=== PATIENT | male | born 1965 | race Caucasian/White ===

== ENCOUNTER → 2017-04-22 | Outpatient (CLI) | payer MEDICAID ==
[~2017-04-22] MED LIST: ACYCLOVIR800 MG PO; BACTRIM DS 8001 TA1 PO; CARVEDILOL6.25 MG PO; CELEXA40 MG PO; DIGITEK0.125 MG PO; ERY-TAB333 MG PO; HCTZ/LISINOPRIL1 TA2 PO; HUMULIN 70100 UNITS/ SC; LISINOPRIL 5MG T5 MG PO; LORTAB 500 MG-11 TAB PO; MEDROL 4MG. DOSE4 MG PO; METFORMIN1000 MG PO; PRAVACHOL40 MG PO; TESTOSTERONE IM; WARFARIN SOD5 M1 PO
--- NOTE | 2017-04-22 15:38 | RADIOLOGY REPORT PS360 ---
ANKLE-LT-3 VIEWS HISTORY: Pain and swelling and redness CELLULITIS OF LEFT LOWER EXT ORDERING PHYSICIAN: ROHAN MARAVILLA APRN PATIENT AGE: 52 years COMPARISON: None FINDINGS: No fracture or dislocation. No lytic or blastic change. There is normal mineralization.. The joint spaces are well-preserved. No significant degenerative/arthritic changes. No erosive changes evident. Small osteophytes are present at the distal tibia. There is mild soft tissue swelling along the lateral malleolus. There is some mild nonspecific cortical thickening of the distal tibia shaft laterally. This is of questionable clinical significance IMPRESSION: 1. Mild soft tissue swelling. 2. No acute finding
== END ==
LOC: RAD 14:54
DX: L03.116 Cellulitis of left lower limb (principal)

== ENCOUNTER 2017-07-07 18:34 | Inpatient (IN) | payer MEDICAID ==
[~2017-07-07] VITALS: Ht 185.4 cm; Wt 112.1 kg
[~2017-07-07 18:34] MED LIST changes: -LISINOPRIL 5MG T5 MG PO; +LISINOPRIL40 MG PO
[2017-07-07 18:39] VITALS: BP 147/98
[2017-07-07] MEDS ORDERED: INVOKAMET1 TA1 PO (18:52)
[2017-07-07 19:05] LABS: HEMOGLOBIN 14.7 g/dL (14.1-18.0); LYMPH # 3.3 K/mm3 (0.7-4.5); LYMPH % 26.2 % (10-50)
--- OUTSIDE RECORDS SUMMARY | 2017-07-07 19:05 | External Medical Summary Rpt | CCD ---
Author Author , MATEO GALINDO Address Unknown Phone [email or web address] Purpose Continuity of Care Document - through 2016 Problems Code Diagnosis DOS Provider Status H91.90 UNSPECIFIED HEARING LOSS, UNSPECIFIED EAR
--- OUTSIDE RECORDS SUMMARY | 2017-07-07 19:05 | External Medical Summary Rpt | CCD ---
Author Author , MATEO GALINDO Address Unknown Phone [email or web address] Purpose Continuity of Care Document - through 2016 Problems Code Diagnosis DOS Provider Status H91.90 UNSPECIFIED HEARING LOSS, UNSPECIFIED EAR
--- OUTSIDE RECORDS SUMMARY | 2017-07-07 19:05 | External Medical Summary Rpt ---
Author Author MATEO Quintana, [employer] Organization [employer] Address Unknown Phone Unavailable
--- OUTSIDE RECORDS SUMMARY | 2017-07-07 19:05 | External Medical Summary Rpt | CCD ---
Author Author [employer] Organization [employer] Address Unknown Phone Unavailable Purpose Continuity of Care Document - through 2016
--- OUTSIDE RECORDS SUMMARY | 2017-07-07 19:05 | External Medical Summary Rpt | CCD ---
Author Author , MATEO GALINDO Address Unknown Phone [email or web address] Support Name Relationship Address Phone JA, Next Of Kin Unknown Unavailable RENETTA Immunization Name Date Rout CVX Reac Dose Comm Prov Is Faci e tion ent ider Refu lity Give sed n PPV2 01-2 33 0.5 Hist WALM No WALM 3 6-20 mL oric ART5 ART5 17 al 91 91 Info rmat ion - Sour ce Unsp ecif ied Tdap 02-1 Intr 115 0.50 Hist SWIT No H191 , 2-20 amus mL oric ZER Adso 16 cula al TAMM rbed r Info Y rmat ion - Sour ce Unsp ecif ied Tdap 08-2 Intr 115 999 Hist H191 No H191 , 3-20 amus oric Adso 07 cula al rbed r Info rmat ion - Sour ce Unsp ecif ied
--- OUTSIDE RECORDS SUMMARY | 2017-07-07 19:05 | External Medical Summary Rpt | CCD ---
Author Author , MATEO GALINDO Address Unknown Phone [email or web address] Support Name Relationship Address Phone JA, Next [...]
--- OUTSIDE RECORDS SUMMARY | 2017-07-07 19:05 | External Medical Summary Rpt | CCD ---
Author Author , MATEO GALINDO Address Unknown Phone [email or web address] Support Name Relationship Address Phone JA, Next [...]
--- OUTSIDE RECORDS SUMMARY | 2017-07-07 19:05 | External Medical Summary Rpt | CCD ---
Author Author , MATEO GALINDO Address Unknown Phone [email or web address] Purpose Continuity of Care Document - through 2016 Problems Code Diagnosis DOS Provider Status H91.90 UNSPECIFIED HEARING LOSS, UNSPECIFIED EAR
--- OUTSIDE RECORDS SUMMARY | 2017-07-07 19:05 | External Medical Summary Rpt | CCD ---
Author Author , MATEO GALINDO Address Unknown Phone Purpose Continuity of Care Document - through 2016 Problems Code Diagnosis DOS Provider Status H91.90 UNSPECIFIED HEARING LOSS, UNSPECIFIED EAR
--- OUTSIDE RECORDS SUMMARY | 2017-07-07 19:05 | External Medical Summary Rpt | CCD ---
Author Author , MATEO GALINDO Address Unknown Phone [email or web address] Support Name Relationship Address Phone JA, Next [...]
--- NOTE | 2017-07-07 19:08 | Emergency Room Report ---
History of Present Illness Time Seen by 1853 Presenting Problem in Triage Pt arrived:Walked Presenting Problem:PT STATES THAT HE GOT BIT BY A BROWN RECLUSE IN THE AND A BUMP POPPED UP AND GOT LARGER, PAINFUL, AND SWOLLEN. ALSO STATES HE HAS A MIGRAINE FROM THE SPOT ON HIS LEFT SHOULDER. Onset of symptoms date/time:/ or onset unknown for:MEDICAL HX UNKNOWN Treatment Prior to Arrival: [employer] Provided by: Sepsis Risk Assessment: Temp: 100 B/P: 147/98 MAP: 114 Pulse: 105 Resp: 14 Recent fever? N Clinical Suspician of Infection? Y Mental Status: 1 - Regular (Normal Baseline) Sepsis Risk:Low Sepsis Risk Have you (or family members/close friends) recently traveled outside the [place]? N If Yes, where/when: Have you had exposure to infectious disease within the past month? N TB? Other? Specify: Patient with DM2, reports fever and nausea over the past five days along with muscle swelling along left trapezius with raised, red area; denies insect bite. On MD arrival in room, patient is starting to vomit. He is requesting something for pain. Has had a fever today. ALLERGIES Coded Allergies: No Known Allergies (05/30/16) Home Medications Active Scripts Methylprednisolone (Medrol Dose Marianela) 4 MG PO UD #1 MARIANELA Prov: 05/30/16 Reported Medications Pravastatin Sodium (Pravachol) 40 MG PO DAILY CITALOPRAM HYDROBROMIDE (Citalopram HBr) 40 MG PO DAILY HYDROCODONE/ACETAMINOPHEN (Hydrocodon-Acetaminophn 10-325) 1 TAB PO QIDP INSUL REG 30%ISOPHAN 70% HUMAN (Humulin 70-30 Vial) 25 U SC DAILY INSUL REG 30%ISOPHAN 70% HUMAN (Humulin 70-30 Vial) 35 UNITS SC QHS LISINOPRIL (Lisinopril) 1 TAB PO DAILY [TESTOSTERONE] 200 MG IM Q2 WEEKS CANAGLIFLOZIN/METFORMIN HCL (Invokamet 50-1,000 MG Tablet) 1 TAB PO DAILY #30 History Medical History General CAD? No Angina: Yes [place]: No Hypertension? Yes Hyperlipidemia? Yes CHF? No DVT? No PE? No COPD? No Asthma? No Anemia? No GERD? No Gastric ulcers? No GI Bleed? No Hernia? No Thyroid Problems? No Hypothyroidism? No CVA? No Seizures? No Diabetes? Yes Insulin Dependent: Yes Insulin Pump: No Home FSBS? Yes Renal Insuffiency? No End Stage Renal Disease? No UTI? No Stones? No BPH? No GB Disease: No Nephritic Syndrome? No Asplenia? No Hepatitis? No Sickle Cell Disease? No Arthritis? No Migraines? No Cataracts? No Glaucoma? No MRSA? Yes HIV? No TB? No Anxiety? No Depression? No Cancer? No More? No Immunization Hx DT/Tetanus UNKNOWN Flu LAST YEAR Pneumonia NEVER Surgical Hx Previous Surgery?Y CYST REMOVED FROM PANCREA Appendix KNEES BILAT. LEFT EAR Family History Family Hx Diabetes Yes CAD No Hypertension Yes Hyperlipidemia Yes Cancer Yes TB No Social History Smoking Hx Smoker: Never Smoker Tobacco: No Alcohol Alcohol: No Review of Systems All Other Systems Reviewed and Negative Constitutional see HPI, fever Gastrointestinal see HPI Musculoskeletal see HPI Skin see HPI Physical Exam Vital Signs Vital Signs Date Time Temp Pulse Resp B/P Pulse O2 O2 Flow FiO2 Ox Delivery Rate 07/07 1839 100.0 105 14 147/98 97 General Appearance normal appearance (febrile, vomiting), mild distress Eye Exam - bilateral eye normal exam, bilateral eye PERRL, bilateral eye EOMI Neck normal inspection, non-tender, supple, no meningismus. Laterally, at trapezius, has STS, induration, no streaks, no fluctuance: area of erythema about 8 cm in diameter, indurated and exquisitely tender; no subcutaneous air. Respiratory Status Yes: trachea midline, chest symmetrical, non tender chest. No: respiratory distress, tender on palpation, use of accessory muscles, pain on inspiration, pain on expiration, productive cough, non productive cough. Lung Sounds bilateral: normal breath sounds, lungs clear. Cardiovascular normal exam, regular rate/rhythm, no peripheral edema, no gallop, no JVD, no murmur, no rub, normal peripheral pulses Gastrointestinal normal bowel sounds, normal exam, non tender, soft, no organomegaly, no guarding, no rebound Extremities non-tender, normal range of motion, normal capillary refill, L trapezius described above; has FROM BUE Strength 5 Upper Ext (L), 5 Upper Ext (R) Neurologic alert, normal exam, no motor/sensory deficits, oriented x 3 (speech clear) Glascow Coma Scale Glascow Coma Scale Response Value EYE response: 4 Spontaneously 4 MOTOR response: 6 OBEYS 6 VERBAL response: 5 Oriented & Converses 5 Total 15 Skin intact (see above) Medical Decision Making LABS/Meds/Orders Pt receiving controlled substance in ED? No Results/Orders Laboratory Tests 07/07/171849: Lactic Acid 1.4, ESR Pending 07/07/171849: Sodium 136, Potassium 3.6, Chloride 100, Carbon Dioxide 29, BUN 8, Creatinine 0.8, Estimated Creat Clear 174, Estimated GFR (MDRD) 102, Glucose 227 H, Calcium 9.2, Total Bilirubin 0.5, AST 14 L, ALT 37, Alkaline Phosphatase 79, Total Protein 7.9, Albumin 3.8, Globulin 4.1 H, Albumin/Globulin Ratio 0.9 L, WBC 12.6 H, RBC 4.67, Hgb 14.7, Hct 42.0, MCV 90.0, RDW 12.8, Plt Count 241, MPV 7.4, Gran % 67.5, Gran # 8.5 H, Lymphocytes % 26.2, Monocytes % 5.4, Eosinophils % 0.6, Basophils % 0.3, Lymphocytes # 3.3, Monocytes # 0.7, Eosinophils # 0.1, Basophils # 0.0, PUBS MCHC 35.1, MCH 31.6 H Current Medication Orders Sig/Prasad Start time Last Medication Dose Route Stop Time Status Admin Sodium Chloride 10 ML PRN PRN 07/07 1900 AC 07/07 IV 07/08 Orders Procedure Date/time Status PHARMACIST CONSULT 07/07 1859 Active IV SALINE LOCK 07/07 1856 Active CULTURE, WOUND 07/07 1856 Active CULTURE, BLOOD 07/07 1856 Active LACTIC ACID 07/07 1856 Complete COMPLETE METABOLIC PANEL 07/07 1856 Complete CBC WITH AUTO DIFF 07/07 1856 Complete Consult Physician Consult Time Called 190 Reason Pt. Condition, Admission Comments Dr. Villalba pss delivery professional for Dr. Hickey: recommends vanco consult per pharmacy and admit after labs back. We have obtained a virtual bed at this time pending lab results to be returned. Departure Departure Time of Disposition 1929 Disposition Still a Patient Clinical Impression Primary Impression: Soft tissue infection Condition STABLE ED Critical Care Critical Care No at 1943
[2017-07-07 19:26] VITALS: BP 110/69
[2017-07-07 21:12] VITALS: BP 110/69; BP 122/72
[2017-07-07 22:19] VITALS: BP 122/72
[2017-07-08 03:49] VITALS: BP 110/65
[2017-07-08 06:41] LABS: HEMOGLOBIN 13.6 g/dL (14.1-18.0); LYMPH % 30.3 % (10-50)
--- NOTE | 2017-07-08 07:24 | PHARMACY CLINIC NOTE ---
Patient Demographics Patient Demographics Admission date: 07/07/17 Date: 07/08/17 Time: 0723 Allergies Coded Allergies: No Known Allergies (05/30/16) HEIGHT- FT: 6 IN: 1.00 K.820 VTE General Information Labs: Laboratory Tests 07/08 07/07 0617 1850 Hematology Hgb (14.1 - 18.0 g/dL) 13.6 L 14.7 Hct (42.0 - 52.0 %) 39.3 L 42.0 Plt Count (142 - 424 K/mm3) 202 241 Disclaimer The following section includes nursing documentation that has been pulled in for pharmacy review. Patient's VTE score: 2 Patient's VTE Risk: VERY LOW RISK Clinical trial participant? No VTE prophylaxis NQF [id number] VTE prophylaxis ordered? Yes Type of prophylaxis/treatment: BRI at 0723
[2017-07-08 08:00] VITALS: BP 151/99
--- NOTE | 2017-07-08 08:00 | HISTORY AND PHYSICAL REPORT ---
Demographics: Admit date: 07/07/17 Chief complaint: LEFT shoulder infection PRIMARY DIAGNOSIS: SOFT TISSUE INFECTION OF THE LEFT SHOULDER Allergies: Coded Allergies: No Known Allergies (05/30/16) History of present illness: History of present illness: 52-year-old white male with history of "spider bite" many years ago that occasionally flares and causes redness. He came to the emergency department with significant area of redness and swelling in the LEFT posterior shoulder area. Admitted for IV antibiotics. Past medical history: Family HX Diabetes Yes CAD No Hypertension Yes Hyperlipidemia Yes Cancer Yes TB No Immunization HX DT/Tetanus 1-4 Years Ago Flu LAST YEAR Pneumonia Received In Past TB Test in last year Yes Result Negative General CAD? No Angina: Yes CT: No Hypertension? Yes Hyperlipidemia? Yes CHF? No DVT? No PE? No COPD? No Asthma? No Anemia? No GERD? No Gastric ulcers? No GI Bleed? No Hernia? No Thyroid Problems? No Hypothyroidism? No CVA? No Seizures? No Diabetes? Yes Insulin Dependent: Yes Insulin Pump: No Home FSBS? Yes Renal Insuffiency? No UTI? No Stones? No BPH? No GB Disease: No Nephritic Syndrome? No Asplenia? No Hepatitis? No Sickle Cell Disease? No Arthritis? No Migraines? No Cataracts? No Glaucoma? No MRSA? Yes HIV? No TB? No Anxiety? No Depression? No Cancer? No More? No Past Surgical HX Previous Surgery?Y CYST REMOVED FROM PANCREA Appendix KNEES BILAT. LEFT EAR Current home meds: Reported Medications Pravastatin Sodium (Pravachol) 40 MG PO DAILY CITALOPRAM HYDROBROMIDE (Citalopram HBr) 40 MG PO DAILY HYDROCODONE/ACETAMINOPHEN (Hydrocodon-Acetaminophn 10-325) 1 TAB PO QIDP INSUL REG 30%ISOPHAN 70% HUMAN (Humulin 70-30 Vial) 25 U SC DAILY INSUL REG 30%ISOPHAN 70% HUMAN (Humulin 70-30 Vial) 35 UNITS SC QHS LISINOPRIL (Lisinopril) 1 TAB PO DAILY [TESTOSTERONE] 200 MG IM Q2 WEEKS CANAGLIFLOZIN/METFORMIN HCL (Invokamet 50-1,000 MG Tablet) 1 TAB PO DAILY #30 Social Hx: Smoking HX Tobacco No Are you/the child exposed to second-hand smoke: Yes Alcohol Alcohol: No Hx of Drug Use Drug Use? No Patien't marital status is Patient's support system is excellent Review of systems: Constitutional fever. No: malaise, weakness. Respiratory No: no symptoms reported, see HPI. Cardiovascular No no symptoms reported Gastrointestinal/Abdominal No no symptoms reported Genitourinary No: no symptoms reported. Musculoskeletal No: no symptoms reported. Skin see HPI. Neurological No: see HPI. Exam: Lab data for last 24 hours: Laboratory Tests 07/08/17 0617: Sodium 137, Potassium 3.5, Chloride 102, Carbon Dioxide 28, BUN 15, Creatinine 0.8, Estimated Creat Clear 173, Estimated GFR (MDRD) 102, Glucose 238 H, Calcium 8.6, WBC 9.9, RBC 4.31 L, Hgb 13.6 L, Hct 39.3 L, MCV 91.1, RDW 12.9, Plt Count 202, MPV 7.4, Gran % 61.3, Gran # 6.1, Lymphocytes % 30.3, Monocytes % 6.9, Eosinophils % 1.2, Basophils % 0.3, Lymphocytes # 3.0, Monocytes # 0.7, Eosinophils # 0.1, Basophils # 0.0, PUBS MCHC 34.6, MCH 31.5 H 07/07/17 2112: POC Glucose 260 H 07/07/17 1850: Lactic Acid 1.4, ESR 31 H 07/07/17 1850: Sodium 136, Potassium 3.6, Chloride 100, Carbon Dioxide 29, BUN 8, Creatinine 0.8, Estimated Creat Clear 174, Estimated GFR (MDRD) 102, Glucose 227 H, Calcium 9.2, Total Bilirubin 0.5, AST 14 L, ALT 37, Alkaline Phosphatase 79, Total Protein 7.9, Albumin 3.8, Globulin 4.1 H, Albumin/Globulin Ratio 0.9 L, WBC 12.6 H, RBC 4.67, Hgb 14.7, Hct 42.0, MCV 90.0, RDW 12.8, Plt Count 241, MPV 7.4, Gran % 67.5, Gran # 8.5 H, Lymphocytes % 26.2, Monocytes % 5.4, Eosinophils % 0.6, Basophils % 0.3, Lymphocytes # 3.3, Monocytes # 0.7, Eosinophils # 0.1, Basophils # 0.0, PUBS MCHC 35.1, MCH 31.6 H Microbiology 07/07 1855 SHOULDER: Wound Culture - RECD 07/07 1850 BLOOD: Anaerobic Blood Culture - RECD 07/07 1850 BLOOD: Aerobic Blood Culture - RECD 07/07 1850 BLOOD: Anaerobic Blood Culture - RECD 07/07 1850 BLOOD: Aerobic Blood Culture - RECD Admission vital signs: 1ST Vital Signs Result Date Time Pulse Ox 97 07/07 1839 B/P 147/98 07/07 1839 Temp 100.0 07/07 1839 Pulse 105 07/07 1839 Resp 14 07/07 1839 O2 Delivery ROOM AIR 07/07 1926 Additional information: Patient is pleasant, alert, cardiopulmonary exam is normal, abdomen soft. He has an 8 cm hard, indurated sebaceous cyst on the LEFT posterior shoulder. No streaking down the arm or down the back. Plan: Problem List 1. Soft tissue infection Plan: Patient's been admitted for vancomycin. We will continue these. Hot compresses and surgical consultation. at 0868
--- NOTE | 2017-07-08 08:21 | CONSULT NOTE ---
Pharmacokinetic Consult Date of consult: 07/08/17 Time of consult: 819 Referring provider: DR. PAVON Reason for consult: VANCOMYCIN DOSING Allergies: Coded Allergies: No Known Allergies (05/30/16) Home Medications: Reported Medications Pravastatin Sodium (Pravachol) 40 MG PO DAILY CITALOPRAM HYDROBROMIDE (Citalopram HBr) 40 MG PO DAILY HYDROCODONE/ACETAMINOPHEN (Hydrocodon-Acetaminophn 10-325) 1 TAB PO QIDP INSUL REG 30%ISOPHAN 70% HUMAN (Humulin 70-30 Vial) 25 U SC DAILY INSUL REG 30%ISOPHAN 70% HUMAN (Humulin 70-30 Vial) 35 UNITS SC QHS LISINOPRIL (Lisinopril) 1 TAB PO DAILY [TESTOSTERONE] 200 MG IM Q2 WEEKS CANAGLIFLOZIN/METFORMIN HCL (Invokamet 50-1,000 MG Tablet) 1 TAB PO DAILY #30 Height (feet): 6 Height (inches): 1.00 Medical History: CAD? No Angina: Yes [place]: No Hypertension? Yes Hyperlipidemia? Yes CHF? No DVT? No PE? No COPD? No Asthma? No Anemia? No GERD? No Gastric ulcers? No GI Bleed? No Hernia? No Thyroid Problems? No Hypothyroidism? No CVA? No Seizures? No Diabetes? Yes Insulin Dependent: Yes Insulin Pump: No Home FSBS? Yes Renal Insuffiency? No UTI? No Stones? No BPH? No GB Disease: No Nephritic Syndrome? No Asplenia? No Hepatitis? No Sickle Cell Disease? No Arthritis? No Migraines? No Cataracts? No Glaucoma? No MRSA? Yes HIV? No TB? No Anxiety? No Depression? No Cancer? No More? No Labs: Laboratory Tests 07/08/17 0617: Sodium 137, Potassium 3.5, Chloride 102, Carbon Dioxide 28, BUN 15, Creatinine 0.8, Estimated Creat Clear 173, Estimated GFR (MDRD) 102, Glucose 238 H, Calcium 8.6, WBC 9.9, RBC 4.31 L, Hgb 13.6 L, Hct 39.3 L, MCV 91.1, RDW 12.9, Plt Count 202, MPV 7.4, Gran % 61.3, Gran # 6.1, Lymphocytes % 30.3, Monocytes % 6.9, Eosinophils % 1.2, Basophils % 0.3, Lymphocytes # 3.0, Monocytes # 0.7, Eosinophils # 0.1, Basophils # 0.0, PUBS MCHC 34.6, MCH 31.5 H 07/07/17 2112: POC Glucose 260 H 07/07/171849: Lactic Acid 1.4, ESR 31 H 07/07/171849: Sodium 136, Potassium 3.6, Chloride 100, Carbon Dioxide 29, BUN 8, Creatinine 0.8, Estimated Creat Clear 174, Estimated GFR (MDRD) 102, Glucose 227 H, Calcium 9.2, Total Bilirubin 0.5, AST 14 L, ALT 37, Alkaline Phosphatase 79, Total Protein 7.9, Albumin 3.8, Globulin 4.1 H, Albumin/Globulin Ratio 0.9 L, WBC 12.6 H, RBC 4.67, Hgb 14.7, Hct 42.0, MCV 90.0, RDW 12.8, Plt Count 241, MPV 7.4, Gran % 67.5, Gran # 8.5 H, Lymphocytes % 26.2, Monocytes % 5.4, Eosinophils % 0.6, Basophils % 0.3, Lymphocytes # 3.3, Monocytes # 0.7, Eosinophils # 0.1, Basophils # 0.0, PUBS MCHC 35.1, MCH 31.6 H Microbiology 07/07 1855 SHOULDER: Wound Culture - RECD 07/07 1850 BLOOD: Anaerobic Blood Culture - RECD 07/07 1850 BLOOD: Aerobic Blood Culture - RECD 07/07 1850 BLOOD: Anaerobic Blood Culture - RECD 07/07 1850 BLOOD: Aerobic Blood Culture - RECD Problem List: 1. Soft tissue infection Plan: BASED ON PATIENT'S FACTORS, RECOMMENDED PATIENT CONTINUE WITH VANCOMYCIN 1750 MG Q8H AT THIS TIME. PHARMACY WILL FOLLOW DAILY AND ADJUST APPROPRIATE. ALEENA BURRIS, PHARMD at 0821
[2017-07-08 08:31] VITALS: BP 151/99
[2017-07-08] MEDS ORDERED: FLONASE 50 MCG16 GM (09:10)
[2017-07-08] MEDS ORDERED: HYDROCODONE-APA1 TA2 PO (09:13)
[2017-07-08] MEDS ORDERED: DEPO-TESTOS200 MG/M1 IM (09:17)
[2017-07-08] MEDS ORDERED: TRESIBA FL100 UNIT/1 SQ (09:20)
--- NOTE | 2017-07-08 12:16 | CONSULT NOTE ---
Standard Demographics Patient Demo Date of Consultation: 07/08/17 Referring Provider: Reinier Hickey MD Reason for Consultation: SOFT TISSUE INFECTION OF THE left SHOULDER AREA PRIMARY DIAGNOSIS: SOFT TISSUE INFECTION OF THE LEFT SHOULDER Allergies: Coded Allergies: No Known Allergies (05/30/16) History of Present Illness Chief Complaint: Tender area on LEFT shoulder History of Present Illness: Patient is a 52-year-old diabetic male. He presented to the emergency department yesterday afternoon with a 5-6 day history of focal tender area on the LEFT trapezius region. He denied any trauma or bite at the exact location. He was seen and evaluated in the emergency department yesterday and admitted for inpatient management. Surgical consultation was ordered. Past Medical History Reports: hypertension, diabetes mellitus. Surgical History Previous Surgery?Y CYST REMOVED FROM PANCREA Appendix KNEES BILAT. LEFT EAR Allergies Coded Allergies: No Known Allergies (05/30/16) Medications: Reported Medications INSUL REG 30%ISOPHAN 70% HUMAN (Humulin 70-30 Vial) 30 U SC BID Lisinopril (Lisinopril 40MG) 40 MG PO DAILY Testosterone Cypionate (Depo-Testosterone) 200 MG IM MONTHLY Insulin Degludec (Tresiba Flextouch U-100) 20 UNIT SQ DAILY Pravastatin Sodium (Pravachol) 40 MG PO DAILY CITALOPRAM HYDROBROMIDE (Citalopram HBr) 40 MG PO DAILY HYDROCODONE/ACETAMINOPHEN (Hydrocodon-Acetaminophn 10-325) 1 TAB PO QIDP Fluticasone Propionate (Flonase 50 Mcg Nasal [place]) 2 SPRAY NA DAILY #16 CANAGLIFLOZIN/METFORMIN HCL (Invokamet 50-1,000 MG Tablet) 1 TAB PO DAILY #30 Smoking Hx Tobacco: No Smoker: Never Smoker Type: N/A Packs/day: N/A Are you/the child exposed to second-hand smoke: Yes Alcohol Alcohol: No Hx of Drug Use Drug Use? No Review of Systems Constitutional No: chills. Skin Positive for: swelling. Immune/allergy No: anaphalaxis. Eyes No: vision loss. ENT No: hearing loss. Respiratory No: shortness of air. Cardiovascular No: chest pain. GI No: abdomen. (male) No: hematuria. Musculoskeletal No: extremity pain. Heme No: bruising. Physical Exam Exam General appearance no acute distress Respiratory clear to auscultation Cardiovascular regular rate and rhythm Findings/Data On the LEFT posterior trapezius region there is an area of erythema. Palpation reveals about 4 cm of induration. There is no evidence of any fluctuance or crepitance. There is minimal superficial pustule. It is tender. Plan Plan: This appears to be somewhat of a furunculosis of the skin and subcutaneous tissue without clear abscess. Incision and drainage may not be beneficial. I will obtain a CT scan of the area see if there is an underlying fluid collection abscess. Otherwise I would recommend continuation of intravenous antibiotics and warm compresses. at 1216
--- NOTE | 2017-07-08 14:18 | RADIOLOGY REPORT PS360 ---
CT EXT UPPER-LT-W/CONTRAST CLINICAL INDICATION: Left upper back pain and swelling with redness/induration, evaluate for abscess SOFT TISSUE INFECTION, LEFT UPPER BACK,LEFT SHOULDER AREA ORDERING PHYSICIAN: Reinier Hickey MD PATIENT AGE: 52 years COMPARISON: None TECHNIQUE: Axial images are obtained following the intravenous administration of 75 mL's of Isovue-370 FINDINGS: There is diffuse thickening of the cutaneous and subcutaneous soft tissues in the right upper back posterior to the trapezius with some mild thickening of the fascia superficial to the trapezius. There may be some mild thickening of the trapezium itself and minimal blurring of the fat along the superficial aspect of the trapezius consistent with cellulitis and myositis. No abscess is however evident. Incidental note made of a subpleural 4 mm nodule in the right upper lobe laterally. No bony erosive changes. No radio opaque foreign body. IMPRESSION: 1. Diffuse thickening of the cutaneous and subcutaneous soft tissues of the right upper back with mild thickening of the trapezius muscle consistent with cellulitis/myositis/mild phlegmonous change. 2. No obvious abscess.
[2017-07-08 16:00] VITALS: BP 144/93
[2017-07-08 19:45] VITALS: BP 136/79
[2017-07-08 20:04] VITALS: BP 136/79
[2017-07-09 04:13] VITALS: BP 124/62
[2017-07-09 08:00] VITALS: BP 136/86
--- NOTE | 2017-07-09 08:02 | ACUTE CARE PROGRESS NOTE (QUA) ---
Progress Notes Subjective Date 07/09/17 Time 0800 Note Overall patient had a good night. Continues to use morphine every 2 hours for this cyst pain even though he says it only lasts for 45 minutes, No fevers. White count remains nonelevated. Exam reveals that the indurated area has coalesced slightly and there is some expressible purulent drainage which I expressed and sent for culture. There continues to be no fluctuance. Cardiopulmonary exam status unchanged. Objective Findings Last VS-Temp:98.6 B/P:136/86 Pulse:94 Resp:20 SaO2:95 ROOM AIR Last weight lbs:244 oz:5 K.820 Method:Bed Scales Assessment/Plan Problem List 1. Soft tissue infection Patient condition Improving Plan: continue current care, continue hot packs. Surgery may want to incise this area now that it's coalesced. Possible discharge home tomorrow on Bactrim. I will stop morphine since it's fairly ineffective and he has Lortab ordered. This inpt stay is expected to cross 2 MNs from start of care Yes at 0801
[2017-07-09 08:22] VITALS: BP 136/86
--- NOTE | 2017-07-09 10:25 | SURGEON PROGRESS NOTE ---
Subjective data Subjective data: RENETTA PERES is a 52 M .Patient denies complaint of nausea and vomitting.He reports his last pain level as 7 on a 0-10 pain scale. Patient still requiring narcotic pain medication although he states the pain is somewhat diminished. Assessment findings Assessment Comment: He has a focal area of erythema which seems to be somewhat smaller. Induration may be slightly extended. There is no fluctuance. Patient plan Plan: Antibiotics Additional data: I reviewed his CT scan report and films. There does not appear to be any fluid collection present for more of a cellulitis and inflammatory changes. However, I am somewhat concerned with the increasing induration. I will place the patient on nothing by mouth status after midnight as he has eaten breakfast this morning for possible incision and drainage if no appreciable improvement. at 1027
--- NOTE | 2017-07-09 12:57 | CONSULT NOTE ---
See Addendum Pharmacokinetic Consult Date of consult: 07/09/17 Time of consult: 1254 Referring provider: DR. PAVON Reason for consult: VANCOMYCIN TROUGH Allergies: Coded Allergies: No Known Allergies (05/30/16) Home Medications: Reported Medications INSUL REG 30%ISOPHAN 70% HUMAN (Humulin 70-30 Vial) 30 U SC BID Lisinopril (Lisinopril 40MG) 40 MG PO DAILY Testosterone Cypionate (Depo-Testosterone) 200 MG IM MONTHLY Insulin Degludec (Tresiba Flextouch U-100) 20 UNIT SQ DAILY Pravastatin Sodium (Pravachol) 40 MG PO DAILY CITALOPRAM HYDROBROMIDE (Citalopram HBr) 40 MG PO DAILY HYDROCODONE/ACETAMINOPHEN (Hydrocodon-Acetaminophn 10-325) 1 TAB PO QIDP Fluticasone Propionate (Flonase 50 Mcg Nasal [place]) 2 SPRAY NA DAILY #16 CANAGLIFLOZIN/METFORMIN HCL (Invokamet 50-1,000 MG Tablet) 1 TAB PO DAILY #30 Height (feet): 6 Height (inches): 1.00 Medical History: CAD? No Angina: Yes AK: No Hypertension? Yes Hyperlipidemia? Yes CHF? No DVT? No PE? No COPD? No Asthma? No Anemia? No GERD? No Gastric ulcers? No GI Bleed? No Hernia? No Thyroid Problems? No Hypothyroidism? No CVA? No Seizures? No Diabetes? Yes Insulin Dependent: Yes Insulin Pump: No Home FSBS? Yes Renal Insuffiency? No UTI? No Stones? No BPH? No GB Disease: No Nephritic Syndrome? No Asplenia? No Hepatitis? No Sickle Cell Disease? No Arthritis? No Migraines? No Cataracts? No Glaucoma? No MRSA? Yes HIV? No TB? No Anxiety? No Depression? No Cancer? No More? No Labs: Laboratory Tests 07/09/17 1136: POC Glucose 246 H 07/09/17 0850: Vancomycin Trough 11.3 H 07/09/17 0615: POC Glucose 207 H 07/08/17 1647: POC Glucose 243 H Microbiology 07/09 0800 BACK: Abscess Culture - RECD Plan: BASED ON PATIENT FACTORS AND CURRENT TROUGH LEVEL, RECOMMEND INCREASING THE CURRENT DOSE OF VANCOMYCIN TO EVERY 36 HOURS. PHARMACY WILL CONTINUE TO MONITOR AND ADJUST DOSE APPROPRIATE. at 1085
[2017-07-09 16:23] VITALS: BP 125/70
[2017-07-09 19:25] VITALS: BP 110/67
[2017-07-09 20:14] VITALS: BP 110/67
[2017-07-10] VITALS (16 sets, daily range): BP systolic 120–155; BP diastolic 60–87
--- NOTE | 2017-07-10 06:47 | ACUTE CARE PROGRESS NOTE (QUA) ---
Progress Notes Subjective Date 07/10/17 Time 0644 Note Patient has no new complaints. He ate well yesterday but did experience nausea overnight. He has not had any fevers. He continues to have pain in the LEFT trapezius area where his infection is located. In the LEFT trapezius patient has a tender indurated area with multiple purulent vesicular lesions. His infection is not spreading but it seems to be coming to a head. He has been made nothing by mouth for likely incision and drainage in the Operating Room. Await Dr. Hahn's evaluation. Objective Findings Last VS-Temp:98.3 B/P:120/61 Pulse:85 Resp:16 SaO2:94 ROOM AIR Last weight lbs:244 oz:5 K.820 Method:Bed Scales Laboratory Tests 07/10/17 0618: POC Glucose 300 H 07/09/17 2104: POC Glucose 270 H 07/09/17 1646: POC Glucose 305 *H 07/09/17 1136: POC Glucose 246 H 07/09/17 0850: Vancomycin Trough 11.3 H Microbiology 07/09 0800 BACK: Abscess Culture - RECD Assessment/Plan Problem List 1. Soft tissue infection Patient condition Stable Plan: continue current care This inpt stay is expected to cross 2 MNs from start of care Yes at 0646
--- NOTE | 2017-07-10 08:20 | SURGEON PROGRESS NOTE ---
Subjective data Subjective data: RENETTA PERES is a 52 M .Patient denies complaint of nausea and vomitting.He reports his last pain level as 0 on a 0-10 pain scale. Patient states that shoulder area may be somwhat better. Assessment findings Assessment Exam General appearance: normal appearance Comment: More focal erythema but now with multiple draining pustules. Patient plan Plan: Antibiotics Additional data: Appears to be more coalesced into abscessed furunculosis. Plan for incision & drainage with debridement this morning. Antibiotic Stewardship (2) Current Culture Results Microbiology 07/09 0800 BACK: Abscess Culture - RECD 07/07 1855 SHOULDER: Wound Culture - RECD 07/07 1850 BLOOD: Anaerobic Blood Culture - RECD 07/07 1850 BLOOD: Aerobic Blood Culture - RECD at 0819
--- NOTE | 2017-07-10 15:56 | Operative Note ---
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 He developed a tender not on the LEFT posterior shoulder region on about 07/02/17 according to the patient. He presented to the emergency department on 07/07/17. He was admitted for inpatient management of abscess. Surgical consultation was obtained the next day. Examination of that time he had what appeared to be cellulitis with for anastomosis without clear abscess. This appeared to be mostly an indurated area. He has CT scan performed which revealed no evidence of any fluid collection. He was initiated on vancomycin and clindamycin was added. Over the next 24 hours he showed some slight regression of the erythema but had some progressive induration. Therefore he was made nothing by mouth for the morning of 07/10/17. That time he had some areas of purulent drainage from some pustules. Plan was made for incision and drainage and debridement. Findings: Consistent with abscessed furunculosis. He had no clearly defined abscess cavity but had purulent liquid tracking through the subcutaneous tissues. Procedure Description: Consent was obtained patient was taken to the operating room. Gen. anesthesia was induced via LMA. He was positioned in RIGHT lateral position. The area was prepped and draped in the standard surgical fashion. Incision was made at the site of purulent drainage. There was no evidence of any pus which exuded from the wound. The wound was probed deeply and bluntly with a hemostat. There was some purulent material then which exuded from the wound. This was sent for aerobic and anaerobic culture. Pustules were then "cored out" by incising in a circular manner using electrocautery. Palpation of the surrounding tissues resulted in some purulence exuding from the subcutaneous tissues. Any loculations were broken up. Wound was probed. Wound was thoroughly irrigated. Hemostasis was achieved with electrocautery. Local anesthetic was infiltrated. Wound was packed with moistened saline gauze. Clean dry sterile dressing was applied. Overall size of the debrided area measured approximately 3 cm in diameter and 2 cm in depth. Size of the induration measured approximately 8 cm. EBL (ml): 20 Anesthesia: Gen. via LMA Specimens: Debrided tissues. Culture sent Disposition Disposition: To PACU at 3544
--- NOTE | 2017-07-10 16:01 | Anesthesia Record ---
Anesthesia Record Part II Discharge time: 1620 Destination: Second Floor PACU nurse assessment review? Yes Patient is: Stable Anesthesia complications? No at 1601
--- NOTE | 2017-07-10 16:01 | Anesthesia Record ---
Anesthesia Record Part I Total IV fluids: 400 EBL (ml): 20 Urine Output: 0 B/P: 126/69 % SaO2: 95 Pulse: 99 Resps: 16 Temp: 98 Patient is: Drowsy, Stable Stable to PACU at: 1550 at 1601
[2017-07-11 04:58] VITALS: BP 107/71
--- NOTE | 2017-07-11 07:56 | ACUTE CARE PROGRESS NOTE (QUA) ---
Progress Notes Subjective Date 07/11/17 Time 0755 Note Patient did well after surgical procedure. Culture has grown MRSA. Dressing is clean and dry. Surgical note reviewed and appreciated. Cardiopulmonary exam normal. Objective Findings Last VS-Temp:98.0 B/P:107/71 Pulse:79 Resp:16 SaO2:95 ROOM AIR Last weight lbs:244 oz:5 K.820 Method:Bed Scales Assessment/Plan Problem List 1. Soft tissue infection 2. Abscess of left shoulder Patient condition Improving Plan: continue current care, continue IV antibiotics and surgical dressing changes. This inpt stay is expected to cross 2 MNs from start of care Yes at 0756
--- NOTE | 2017-07-11 07:58 | SURGEON PROGRESS NOTE ---
Subjective data Subjective data: RENETTA PERES is a 52 M .Patient denies complaint of nausea and vomitting.He reports his last pain level as 0 on a 0-10 pain scale. Patient complains of some soreness. Assessment findings Assessment Exam General appearance: normal appearance, alert Comment: Wound dressed. Patient plan Plan: Antibiotics at 1776
[2017-07-11 08:22] VITALS: BP 107/71
[2017-07-11 08:30] VITALS: BP 136/80
--- NOTE | 2017-07-11 10:53 | ACUTE CARE PROGRESS NOTE (QUA) ---
Progress Notes Subjective Date 07/11/17 Time 1052 Assessment/Plan Problem List 1. Soft tissue infection 2. Abscess of left shoulder This inpt stay is expected to cross 2 MNs from start of care Yes Antibiotic Stewardship (2) Current Culture Results Microbiology 07/10 1528 SHOULDER: Antimicrobic Susceptibility - RECD 07/10 1528 SHOULDER: Anaerobic Culture Result 4 - RECD 07/10 1528 SHOULDER: Anaerobic Culture Result 3 - RECD 07/10 1528 SHOULDER: Anaerobic Culture Result 2 - RECD 07/10 1528 SHOULDER: Anaerobic Culture Result 1 - RECD 07/10 1528 SHOULDER: Anaerobic Culture - RECD 07/10 1528 SHOULDER: Abscess Culture - RECD 07/09 0800 BACK: Abscess Culture - COMP STAPHYLOCOCCUS AUREUS 07/07 185 SHOULDER: Wound Culture - COMP STAPHYLOCOCCUS EPIDERMIDIS 07/07 185 BLOOD: Anaerobic Blood Culture - RES 07/07 185 BLOOD: Aerobic Blood Culture - RES Infxn that will respond? Yes Right drug,dose,and route? Yes More targeted antbx? No at 1052
[2017-07-11 15:58] VITALS: BP 148/85
[2017-07-11 20:13] VITALS: BP 143/82
[2017-07-11 21:20] VITALS: BP 143/82
[2017-07-12 04:30] VITALS: BP 158/90
--- NOTE | 2017-07-12 07:07 | SURGEON PROGRESS NOTE ---
Subjective data Subjective data: RENETTA PERES is a 52 M .Patient denies complaint of nausea and vomitting.He reports his last pain level as 7 on a 0-10 pain scale. Still c/o soreness. Tolerating dressing changes better. Assessment findings Assessment Exam General appearance: normal appearance, alert Comment: Wound with less erythema. No purulent drainage. Patient plan Plan: Antibiotics Additional data: Should be okay to discharge home on oral antibiotics and at least twice daily wet to dry dressing changes. at 0706
--- NOTE | 2017-07-12 07:21 | DISCHARGE SUMMARY STANDARD ---
Demographics Admit date: 07/07/17 Discharge date: 07/12/17 History of present illness History of present illness 52-year-old white male with history of "spider bite" many years ago that occasionally flares and causes redness. He came to the emergency department with significant area of redness and swelling in the LEFT posterior shoulder area. Admitted for IV antibiotics. Hospital Course Hospital Course: Patient was admitted, was consulted. Notes reviewed and appreciated. Patient initially had evidence of soft tissue infection without abscess but with heat treatments and antibiotics the infection coalesced into a furuncle. Patient was taken to the Operating Room and this was debrided. Please see notes for details. The patient was continued on IV vancomycin for 2 more days because of the significance of infection but this morning was improving. Much less pain, much less fever, and patient was discharged home. Will be placed on dual by mouth antibiotics, short term follow-up with surgery and routine follow-up with me. Please see surgical notes this morning for exam details. Discharge diagnoses Problem List 1. Soft tissue infection 2. Abscess of left shoulder Medications Medications: Discharge meds are as noted. Follow up Follow up in office in: 3 DAYS with: Quincy Hahn MD at 0720
[2017-07-12] MEDS ORDERED: BACTRIM DS 8001 TA1 PO (07:22)
[2017-07-12] MEDS ORDERED: CLINDAMYCIN HC300 MG PO (07:23)
[2017-07-12 08:30] VITALS: BP 147/85
[2017-07-12 10:39] VITALS: BP 147/85
[2017-07-12 13:15] VITALS: BP 147/85
== END 2017-07-12 13:13 | disposition home or self-care (01) | DRG 603 ==
LOC: ER 18:34 → 2ND 19:00 → ER 19:00 → 2ND 19:04
PROVIDERS: Emergency Medicine; Internal Medicine Adolescent Medicine; Surgery
PROC: 0HB6XZZ Excision of Back Skin, External Approach (ICD-10-PCS; principal; 2017-07-10 15:09)
PROC: 0H96XZZ Drainage of Back Skin, External Approach (ICD-10-PCS; principal; 2017-07-10 15:09)
DX: L02.222 Furuncle of back [any part, except buttock and flank] (principal); L03.312 Cellulitis of back [any part except buttock and flank]; B95.62 Methicillin resistant Staphylococcus aureus infection as the cause of diseases classified elsewhere; I10 Essential (primary) hypertension; E11.9 Type 2 diabetes mellitus without complications; Z79.4 Long term (current) use of insulin
CPT/HCPCS: J2405; J3370; Q9967